=== PATIENT | female | born 1960 | race Caucasian/White ===

== ENCOUNTER 2017-04-01 14:16 | Emergency (ER) | payer MEDICARE ==
[~2017-04-01] VITALS: Ht 165.1 cm; Wt 118.2 kg
[2017-04-01 14:18] VITALS: BP 138/80
[2017-04-01] MEDS ORDERED: GEMF600T PO (14:32)
[2017-04-01] MEDS ORDERED: CLAR10CA3 PO (14:32)
[2017-04-01] MEDS ORDERED: GABA-283 PO (14:32)
[2017-04-01] MEDS ORDERED: NEUR600T PO (14:32)
[2017-04-01] MEDS ORDERED: [UNRECOGNIZED DRUG - CODE] EX (14:32)
[2017-04-01] MEDS ORDERED: METF500T13 PO (14:32)
[2017-04-01] MEDS ORDERED: QVAR1AER2 IN (14:32)
[2017-04-01] MEDS ORDERED: DITR5TAB PO (14:32)
[2017-04-01] MEDS ORDERED: AMLO10TA2 PO (14:32)
[2017-04-01] MEDS ORDERED: OLME5TAB PO (14:32)
[2017-04-01] MEDS ORDERED: RANI15TA PO (14:32)
[2017-04-01] MEDS ORDERED: LIPI80TA PO (14:32)
[2017-04-01] MEDS ORDERED: PROAAER10 INH (14:32)
[2017-04-01] MEDS ORDERED: AUGM875T28 PO (16:50)
[2017-04-01] MEDS ORDERED: AUGMENTIN 875 MG TAB PO ONE (17:00)
[2017-04-01] MEDS ORDERED: IBUPROFEN 800 MG TAB PO ONE (17:00)
== END 2017-04-01 17:22 | disposition home or self-care (01) ==
LOC: M ED 14:16
DX: J01.90 Acute sinusitis, unspecified (principal); J45.909 Unspecified asthma, uncomplicated; I10 Essential (primary) hypertension; E11.9 Type 2 diabetes mellitus without complications; E78.70 Disorder of bile acid and cholesterol metabolism, unspecified; Z79.01 Long term (current) use of anticoagulants; Z79.899 Other long term (current) drug therapy; Z88.2 Allergy status to sulfonamides

== ENCOUNTER → 2017-07-24 | Outpatient (REF) | payer MEDICARE, MEDICAID ==
[2017-07-24 15:41] LABS: BASO # 0.1 10^3/uL (0.0-0.2); BASO % 0.6 % (0.0-1.0); EOS # 0.2 10^3/uL (0.0-0.50); EOS % 2.1 % (0.0-3.0); HEMATOCRIT 40.7 % (36.0-47.0); HEMOGLOBIN 13.3 g/dl (12.0-16.0); IMMATURE GRANULOCYTE % 0.2 % (0-0); LYMPH % 22.3 % (24.0-44.0); MEAN CORPUSCULAR HEMOGLOBIN 30.2 pg (27.0-33.0); MEAN CORPUSCULAR HGB CONC 32.7 g/dl (32.0-36.5); MEAN CORPUSCULAR VOLUME 92.3 fl (80.0-96.0); MONO # 0.6 10^3/uL (0.0-0.8); NEUTROPHILS # 6.1 10^3/uL (1.8-7.7); NEUTROPHILS % 67.8 % (36.0-66.0); PLATELET COUNT, AUTOMATED 370 10^3/uL (150-450); RED BLOOD COUNT 4.41 10^6/uL (4.00-5.40); RED CELL DISTRIBUTION WIDTH 13.8 % (11.5-14.5)
[2017-07-24 16:01] LABS: ALBUMIN 4.7 GM/DL (3.2-5.2); ALBUMIN/GLOBULIN RATIO 1.62 (1.00-1.93); ALKALINE PHOSPHATASE 107 U/L (45-117); ALT/SGPT 69 U/L (12-78); ANION GAP 8 MEQ/L (8-16); AST/SGOT 74 U/L (7-37); BILIRUBIN,TOTAL 0.3 MG/DL (0.2-1.0); BLOOD UREA NITROGEN 20 MG/DL (7-18); CARBON DIOXIDE LEVEL 29 MEQ/L (21-32); CHLORIDE LEVEL 104 MEQ/L (98-107); CHOLESTEROL LEVEL 117 MG/DL (<200); CHOLESTEROL RISK RATIO 2.207 (<5); CREATININE FOR GFR 0.71 MG/DL (0.55-1.02); GLOMERULAR FILTRATION RATE > 60.0 (>51); GLUCOSE, FASTING 129 MG/DL (70-105); HDL CHOLESTEROL 53 MG/DL (>40); LDL CHOLESTEROL 32.2 MG/DL (<100); NON-HDL-C 64 MG/DL; POTASSIUM SERUM 4.9 MEQ/L (3.5-5.1); SODIUM LEVEL 141 MEQ/L (136-145); TOTAL PROTEIN 7.6 GM/DL (6.4-8.2); TRIGLYCERIDES LEVEL 159 MG/DL (<150)
[2017-07-24 16:10] LABS: ESTIMATED AVERAGE GLUCOSE 180 MG/DL (60-110); HEMOGLOBIN A1c 7.9 %
[2017-07-24 16:55] LABS: MAU/CREAT RATIO 103.7 MCG/MG (0.0-30.0)
== END ==
LOC: M SFHCPLAZ 13:08
DX: F32.9 Major depressive disorder, single episode, unspecified (principal); E11.9 Type 2 diabetes mellitus without complications; E78.5 Hyperlipidemia, unspecified; Z87.11 Personal history of peptic ulcer disease
CPT/HCPCS: 84443

== ENCOUNTER → 2017-07-31 | Outpatient (REF) | payer MEDICARE, MEDICAID ==
[2017-07-31 19:28] LABS: FERRITIN 146 NG/ML (8-252)
[2017-08-02 10:25] LABS: HEPATITIS B SURFACE ANTIGEN NEGATIVE (NEGATIVE)
[2017-08-02 10:29] LABS: HEPATITIS B SURFACE ANTIBODY NEGATIVE (POSITIVE)
[2017-08-02 10:37] LABS: HEPATITIS C VIRUS ABY INDEX < 0.0 INDEX (<0.8)
[2017-08-02 10:37] LABS: HEPATITIS B CORE ANTIBODY IGM NEGATIVE (NEGATIVE)
[2017-08-03 00:10] LABS: ALPHA 1 ANTITRYPSIN 170 mg/dL (90-200)
[2017-08-03 00:10] LABS: ANTI-MITOCHONDRIAL ANTIBODY 0.9 Units (0.0-20.0); ANTINUCLEAR ANTIBODIES DIRECT Negative (Negative)
== END ==
LOC: M SFHCPLAZ 15:06
DX: R74.0 Nonspecific elevation of levels of transaminase and lactic acid dehydrogenase [LDH] (principal); R80.9 Proteinuria, unspecified
CPT/HCPCS: 86706

== ENCOUNTER → 2017-08-05 | Outpatient (CLI) | payer MEDICARE, MEDICAID | LOC: M RAD 07:48 | DX: R19.01 Right upper quadrant abdominal swelling, mass and lump (principal) | CPT/HCPCS: 76705 ==

== ENCOUNTER 2017-08-28 11:14 | Emergency (ER) | payer OTHER, MEDICARE, MEDICAID ==
[2017-08-28] MEDS: NORCO, ANEXSIA 5/325MG TABLET (HYDROcodone/ACETAMINOPHEN) PO (12:51)
== END 2017-08-28 13:04 | disposition home or self-care (01) ==
LOC: M ED 11:14
DX: S83.91XA Sprain of unspecified site of right knee, initial encounter (principal); X50.9XXA Other and unspecified overexertion or strenuous movements or postures, initial encounter; V58.4XXA Person boarding or alighting a pick-up truck or van injured in noncollision transport accident, initial encounter; Y92.410 Unspecified street and highway as the place of occurrence of the external cause; Y92.018 Other place in single-family (private) house as the place of occurrence of the external cause; I10 Essential (primary) hypertension; J45.909 Unspecified asthma, uncomplicated; E11.9 Type 2 diabetes mellitus without complications; G62.9 Polyneuropathy, unspecified; E78.5 Hyperlipidemia, unspecified; Z79.899 Other long term (current) drug therapy; Z88.2 Allergy status to sulfonamides; Z88.8 Allergy status to other drugs, medicaments and biological substances
CPT/HCPCS: 99283

== ENCOUNTER → 2017-09-24 | Outpatient (CLI) | payer MEDICARE, MEDICAID | LOC: M RAD 14:45 | DX: J32.0 Chronic maxillary sinusitis (principal) | CPT/HCPCS: 70486 ==

== ENCOUNTER → 2017-10-16 | Outpatient (CLI) | payer MEDICARE, MEDICAID | LOC: M WHC 11:56 | DX: Z12.31 Encounter for screening mammogram for malignant neoplasm of breast (principal); Z12.4 Encounter for screening for malignant neoplasm of cervix; Z78.0 Asymptomatic menopausal state; Z80.41 Family history of malignant neoplasm of ovary; Z80.9 Family history of malignant neoplasm, unspecified | CPT/HCPCS: 77067; G0123 ==

== ENCOUNTER → 2017-10-24 | Outpatient (CLI) | payer MEDICARE, MEDICAID ==
[2017-10-24 13:13] LABS: BASO # 0.1 10^3/uL (0.0-0.2); BASO % 0.5 % (0.0-1.0); EOS # 0.3 10^3/uL (0.0-0.50); EOS % 2.7 % (0.0-3.0); HEMATOCRIT 37.5 % (36.0-47.0); HEMOGLOBIN 12.1 g/dl (12.0-15.5); IMMATURE GRANULOCYTE # 0.1 10^3/uL (0-0); IMMATURE GRANULOCYTE % 0.6 % (0-3.0); LYMPH # 1.7 10^3/uL (1.5-4.5); LYMPH % 17.2 % (24.0-44.0); MEAN CORPUSCULAR HEMOGLOBIN 30.2 pg (27.0-33.0); MEAN CORPUSCULAR HGB CONC 32.3 g/dl (32.0-36.5); MEAN CORPUSCULAR VOLUME 93.5 fl (80.0-96.0); MONO # 0.6 10^3/uL (0.0-0.8); MONO % 6.4 % (0.0-5.0); NEUTROPHILS # 7.3 10^3/uL (1.8-7.7); NEUTROPHILS % 72.6 % (36.0-66.0); PLATELET COUNT, AUTOMATED 266 10^3/uL (150-450); RED BLOOD COUNT 4.01 10^6/uL (4.00-5.40); RED CELL DISTRIBUTION WIDTH 14.7 % (11.5-14.5)
[2017-10-24 13:59] LABS: IMMUNOGLOBULIN A 31.5 MG/DL (70-400)
[2017-10-24 13:59] LABS: IMMUNOGLOBULIN G 380 MG/DL (681-1648); IMMUNOGLOBULIN M 37.5 MG/DL (40-230)
[2017-10-24 14:28] LABS: IMMUNOGLOBULIN E 6.1 IU/ML (<100)
[2017-10-25 11:20] LABS: RUBELLA IgG QUALITATIVE IMMUNE (IMMUNE)
[2017-10-29 14:14] LABS: ANTI TETANUS ANTIBODY 1.44 IU/mL (<0.10)
[2017-10-31 00:06] LABS: IMMUNOGLOBULIN D <0.12 mg/dL (<14.11); STREP PNEUMO TYPE 1 4.2 ug/mL (>1.3); STREP PNEUMO TYPE 12F 1.2 ug/mL (>1.3); STREP PNEUMO TYPE 14 11.8 ug/mL (>1.3); STREP PNEUMO TYPE 18C 0.3 ug/mL (>1.3); STREP PNEUMO TYPE 19A 0.7 ug/mL (>1.3); STREP PNEUMO TYPE 19F 3.6 ug/mL (>1.3); STREP PNEUMO TYPE 23F 0.7 ug/mL (>1.3); STREP PNEUMO TYPE 3 0.2 ug/mL (>1.3); STREP PNEUMO TYPE 4 3.5 ug/mL (>1.3); STREP PNEUMO TYPE 6B 2.2 ug/mL (>1.3); STREP PNEUMO TYPE 7F 0.4 ug/mL (>1.3); STREP PNEUMO TYPE 8 1.1 ug/mL (>1.3); STREP PNEUMO TYPE 9N 0.8 ug/mL (>1.3); STREP PNEUMO TYPE 9V 1.1 ug/mL (>1.3)
== END ==
LOC: M SMT 10:26
DX: K21.9 Gastro-esophageal reflux disease without esophagitis (principal); J45.40 Moderate persistent asthma, uncomplicated; J31.0 Chronic rhinitis; J32.4 Chronic pansinusitis; F32.9 Major depressive disorder, single episode, unspecified
CPT/HCPCS: 82785

== ENCOUNTER → 2017-10-29 | Outpatient (REF) | payer MEDICARE, MEDICAID ==
[2017-10-29 12:46] LABS: MALB URINE SIEMENS 60.2 MG/L; MAU/CREAT RATIO 41.5 MCG/MG (0.0-30.0)
[2017-10-29 13:03] LABS: ALBUMIN/GLOBULIN RATIO 1.38 (1.00-1.93); ALKALINE PHOSPHATASE 110 U/L (45-117); ALT/SGPT 50 U/L (12-78); ANION GAP 8 MEQ/L (8-16); AST/SGOT 44 U/L (7-37); BILIRUBIN,TOTAL 0.4 MG/DL (0.2-1.0); BLOOD UREA NITROGEN 13 MG/DL (7-18); CALCIUM LEVEL 9.4 MG/DL (8.5-10.1); CARBON DIOXIDE LEVEL 27 MEQ/L (21-32); CHLORIDE LEVEL 105 MEQ/L (98-107); CHOLESTEROL LEVEL 164 MG/DL (<200); CHOLESTEROL RISK RATIO 3.904 (<5); CREATININE FOR GFR 0.78 MG/DL (0.55-1.30); GLOMERULAR FILTRATION RATE > 60.0 (>51); GLUCOSE, FASTING 166 MG/DL (70-100); HDL CHOLESTEROL 42 MG/DL (>40); LDL CHOLESTEROL 52.6 MG/DL (<100); NON-HDL-C 122 MG/DL; POTASSIUM SERUM 4.3 MEQ/L (3.5-5.1); SODIUM LEVEL 140 MEQ/L (136-145); TOTAL PROTEIN 6.9 GM/DL (6.4-8.2); TRIGLYCERIDES LEVEL 347 MG/DL (<150)
[2017-10-29 14:43] LABS: ESTIMATED AVERAGE GLUCOSE 180 MG/DL (60-110); HEMOGLOBIN A1c 7.9 %
== END ==
LOC: M SFHCPLAZ 09:08
DX: E78.5 Hyperlipidemia, unspecified (principal); R74.0 Nonspecific elevation of levels of transaminase and lactic acid dehydrogenase [LDH]; E11.9 Type 2 diabetes mellitus without complications; R80.9 Proteinuria, unspecified
CPT/HCPCS: 80053

== ENCOUNTER 2017-12-06 15:05 | Emergency (ER) | payer MEDICARE, MEDICAID ==
[2017-12-06] MEDS: VANCOMYCIN HCL 1,000 MG, VIAL MATE ADAPTER 1 EACH in D5W 250 ML IV ×2 (15:56)
[2017-12-06 16:07] LABS: BASO % 0.4 % (0.0-1.0); EOS # 0.3 10^3/uL (0.0-0.50); EOS % 3.9 % (0.0-3.0); HEMATOCRIT 38.5 % (36.0-47.0); HEMOGLOBIN 12.3 g/dl (12.0-15.5); IMMATURE GRANULOCYTE % 0.3 % (0-3.0); LYMPH # 1.2 10^3/uL (1.5-4.5); LYMPH % 18.4 % (24.0-44.0); MEAN CORPUSCULAR HEMOGLOBIN 29.4 pg (27.0-33.0); MEAN CORPUSCULAR HGB CONC 31.9 g/dl (32.0-36.5); MEAN CORPUSCULAR VOLUME 92.1 fl (80.0-96.0); MONO # 0.6 10^3/uL (0.0-0.8); MONO % 9.4 % (0.0-5.0); NEUTROPHILS # 4.5 10^3/uL (1.8-7.7); NEUTROPHILS % 67.6 % (36.0-66.0); PLATELET COUNT, AUTOMATED 273 10^3/uL (150-450); RED BLOOD COUNT 4.18 10^6/uL (4.00-5.40); RED CELL DISTRIBUTION WIDTH 15.3 % (11.5-14.5); WHITE BLOOD COUNT 6.7 10^3/uL (4.0-10.0)
[2017-12-06 16:12] LABS: ANION GAP 5 MEQ/L (8-16); BLOOD UREA NITROGEN 12 MG/DL (7-18); C REACTIVE PROTEIN QUANTITATIV 2.45 MG/DL (0.00-0.30); CALCIUM LEVEL 9.3 MG/DL (8.5-10.1); CARBON DIOXIDE LEVEL 28 MEQ/L (21-32); CHLORIDE LEVEL 105 MEQ/L (98-107); CREATININE FOR GFR 0.95 MG/DL (0.55-1.30); GLOMERULAR FILTRATION RATE > 60.0 (>51); GLUCOSE, FASTING 184 MG/DL (70-100); POTASSIUM SERUM 4.6 MEQ/L (3.5-5.1); SODIUM LEVEL 138 MEQ/L (136-145)
[2017-12-06 16:16] LABS: LACTIC ACID SEPSIS PROTOCOL 1.9 MMOL/L (0.4-2.0)
[2017-12-06 16:38] LABS: ERYTHROCYTE SEDIMENTATION RATE 32 mm/hr (0-30)
== END 2017-12-06 17:24 | disposition home or self-care (01) ==
LOC: M ED 15:05
DX: L03.031 Cellulitis of right toe (principal); J45.909 Unspecified asthma, uncomplicated; I10 Essential (primary) hypertension; E11.9 Type 2 diabetes mellitus without complications; Z79.2 Long term (current) use of antibiotics; Z79.84 Long term (current) use of oral hypoglycemic drugs; Z79.51 Long term (current) use of inhaled steroids; Z79.899 Other long term (current) drug therapy; Z98.890 Other specified postprocedural states; Z88.1 Allergy status to other antibiotic agents; Z88.2 Allergy status to sulfonamides
CPT/HCPCS: J3370

== ENCOUNTER 2017-12-24 12:37 | Emergency (ER) | payer MEDICARE, MEDICAID | END 2017-12-24 14:58 | disposition home or self-care (01) | LOC: M ED 12:37 | DX: J45.909 Unspecified asthma, uncomplicated (principal); J20.9 Acute bronchitis, unspecified; Z88.1 Allergy status to other antibiotic agents; Z88.2 Allergy status to sulfonamides; Z79.899 Other long term (current) drug therapy; F33.9 Major depressive disorder, recurrent, unspecified | CPT/HCPCS: 71046 ==

== ENCOUNTER 2018-01-07 22:56 | Emergency (ER) | payer MEDICARE, MEDICAID ==
[2018-01-08] MEDS: LIDOCAINE 2% W/EPIN INJ 20ML **PRES FREE INJ
[2018-01-08] MEDS: PERCOCET 5MG/325MG TAB PO (00:08)
[2018-01-08] MEDS: AUGMENTIN 875 MG TAB PO (00:08)
[2018-01-08] MEDS: ADACEL/BOOSTRIX VACCINE (DIPHTH/PERTUSS/ACELL/TETANUS)0.5ML SYR (90715) IM (00:10)
[2018-01-08] MEDS: OXYCODONE/APAP 5MG/325MG(BULK FOR ED) 1 TABLET PO (00:35)
== END 2018-01-08 00:38 | disposition home or self-care (01) ==
LOC: M ED 01-08 00:38
DX: S61.402A Unspecified open wound of left hand, initial encounter (principal); S61.502A Unspecified open wound of left wrist, initial encounter; W54.0XXA Bitten by dog, initial encounter; Y92.099 Unspecified place in other non-institutional residence as the place of occurrence of the external cause; Y93.89 Activity, other specified; Y99.9 Unspecified external cause status; I10 Essential (primary) hypertension; Z79.84 Long term (current) use of oral hypoglycemic drugs; Z79.891 Long term (current) use of opiate analgesic; Z79.899 Other long term (current) drug therapy; Z88.1 Allergy status to other antibiotic agents
CPT/HCPCS: 90715

== ENCOUNTER → 2018-01-14 | Outpatient (CLI) | payer MEDICARE, MEDICAID | LOC: M LAB 17:42 | DX: D80.1 Nonfamilial hypogammaglobulinemia (principal); J18.9 Pneumonia, unspecified organism | CPT/HCPCS: 86609 ==

== ENCOUNTER → 2018-01-27 | Outpatient (REF) | payer MEDICARE, MEDICAID ==
[2018-01-27 11:38] LABS: ANION GAP 8 MEQ/L (8-16); BLOOD UREA NITROGEN 17 MG/DL (7-18); CARBON DIOXIDE LEVEL 28 MEQ/L (21-32); CHLORIDE LEVEL 106 MEQ/L (98-107); CREATININE FOR GFR 0.81 MG/DL (0.55-1.30); GLOMERULAR FILTRATION RATE > 60.0 (>51); GLUCOSE, FASTING 169 MG/DL (70-100); POTASSIUM SERUM 4.5 MEQ/L (3.5-5.1); SODIUM LEVEL 142 MEQ/L (136-145)
[2018-01-27 14:37] LABS: ESTIMATED AVERAGE GLUCOSE 194 MG/DL (60-110); HEMOGLOBIN A1c 8.4 %
== END ==
LOC: M SFHCPLAZ 08:46
DX: E11.9 Type 2 diabetes mellitus without complications (principal)
CPT/HCPCS: 83036

== ENCOUNTER → 2018-03-19 | Outpatient (CLI) | payer MEDICARE, MEDICAID | LOC: M RAD 14:57 | DX: M25.512 Pain in left shoulder (principal) | CPT/HCPCS: 73030 ==

== ENCOUNTER → 2018-03-26 | Outpatient (CLI) | payer MEDICARE, MEDICAID | LOC: M RAD 09:04 | DX: M25.512 Pain in left shoulder (principal); M25.412 Effusion, left shoulder; S46.812A Strain of other muscles, fascia and tendons at shoulder and upper arm level, left arm, initial encounter; X58.XXXA Exposure to other specified factors, initial encounter; Y92.9 Unspecified place or not applicable; J31.0 Chronic rhinitis | CPT/HCPCS: 73221 ==

== ENCOUNTER → 2018-03-26 | Outpatient (CLI) | payer MEDICARE, MEDICAID | LOC: M RAD 08:59 | DX: J31.0 Chronic rhinitis (principal) ==

== ENCOUNTER → 2018-04-05 | Outpatient (CLI) | payer MEDICARE, MEDICAID | LOC: M SLEEP 19:49 | DX: G47.30 Sleep apnea, unspecified (principal) | CPT/HCPCS: 95810 ==

== ENCOUNTER → 2018-04-11 | Outpatient (CLI) | payer MEDICARE, MEDICAID ==
[2018-04-11 13:55] LABS: TOTAL PROTEIN 7.2 GM/DL (6.4-8.2)
[2018-04-13 00:06] LABS: FREE KAPPA LIGHT CHAINS SERUM 1233.1 mg/L (3.3-19.4); FREE LAMBDA LIGHT CHAINS SERUM 6.3 mg/L (5.7-26.3); KAPPA/LAMBDA RATIO SERUM 195.73 (0.26-1.65)
[2018-04-15 13:49] LABS: ALBUMIN % 59.2 % (55.8-66.1); ALPHA-1-GLOBULIN % 5.2 % (2.9-4.9); BETA-1-GLOBULINS % 6.7 % (4.7-7.2); BETA-2-GLOBULINS % 4.7 % (3.2-6.5); GAMMA GLOBULIN % 11.2 % (11.1-18.8)
[2018-04-15 13:50] LABS: ALBUMIN 4.26 GM/DL (3.29-5.55); ALPHA-1-GLOBULINS 0.37 GM/DL (0.17-0.41); ALPHA-2-GLOBULINS 0.94 GM/DL (0.42-0.99); BETA-1-GLOBULINS 0.48 GM/DL (0.28-0.60); BETA-2-GLOBULINS 0.34 GM/DL (0.19-0.55); GAMMA GLOBULINS 0.81 GM/DL (0.65-1.58)
== END ==
LOC: M LAB 12:39
DX: M89.9 Disorder of bone, unspecified (principal)
CPT/HCPCS: 84165

== ENCOUNTER → 2018-04-11 | Outpatient (CLI) | payer MEDICARE, MEDICAID | LOC: M RAD 16:42 | DX: M50.20 Other cervical disc displacement, unspecified cervical region (principal); M51.34 Other intervertebral disc degeneration, thoracic region; M51.36 Other intervertebral disc degeneration, lumbar region | CPT/HCPCS: 77075 ==

== ENCOUNTER → 2018-04-25 | Outpatient (CLI) | payer MEDICARE, MEDICAID ==
[2018-04-25 12:14] LABS: ESTIMATED AVERAGE GLUCOSE 143 MG/DL (60-110); HEMOGLOBIN A1c 6.6 %
== END ==
LOC: M LAB 11:08
DX: F32.9 Major depressive disorder, single episode, unspecified (principal)

== ENCOUNTER → 2018-04-25 | Outpatient (CLI) | payer MEDICARE, MEDICAID ==
[2018-04-25 11:58] LABS: BASO # 0.1 10^3/uL (0.0-0.2); BASO % 0.4 % (0.0-1.0); EOS # 0.2 10^3/uL (0.0-0.50); EOS % 1.4 % (0.0-3.0); HEMATOCRIT 35.5 % (36.0-47.0); HEMOGLOBIN 11.4 g/dl (12.0-15.5); IMMATURE GRANULOCYTE % 0.3 % (0-3.0); LYMPH # 2.6 10^3/uL (1.5-4.5); LYMPH % 21.8 % (24.0-44.0); MEAN CORPUSCULAR HEMOGLOBIN 28.9 pg (27.0-33.0); MEAN CORPUSCULAR HGB CONC 32.1 g/dl (32.0-36.5); MEAN CORPUSCULAR VOLUME 89.9 fl (80.0-96.0); MONO # 0.7 10^3/uL (0.0-0.8); MONO % 5.5 % (0.0-5.0); NEUTROPHILS # 8.4 10^3/uL (1.8-7.7); NEUTROPHILS % 70.6 % (36.0-66.0); PLATELET COUNT, AUTOMATED 306 10^3/uL (150-450); RED BLOOD COUNT 3.95 10^6/uL (4.00-5.40); RED CELL DISTRIBUTION WIDTH 17.2 % (11.5-14.5); WHITE BLOOD COUNT 11.9 10^3/uL (4.0-10.0)
[2018-04-25 12:30] LABS: ALBUMIN 3.9 GM/DL (3.2-5.2); ALBUMIN/GLOBULIN RATIO 1.39 (1.00-1.93); ALKALINE PHOSPHATASE 102 U/L (45-117); ALT/SGPT 31 U/L (12-78); ANION GAP 11 MEQ/L (8-16); AST/SGOT 15 U/L (7-37); BILIRUBIN,TOTAL 0.3 MG/DL (0.2-1.0); BLOOD UREA NITROGEN 24 MG/DL (7-18); CALCIUM LEVEL 8.9 MG/DL (8.5-10.1); CARBON DIOXIDE LEVEL 25 MEQ/L (21-32); CHLORIDE LEVEL 106 MEQ/L (98-107); CREATININE FOR GFR 1.08 MG/DL (0.55-1.30); GLOMERULAR FILTRATION RATE 56.1 (>51); GLUCOSE, FASTING 99 MG/DL (70-100); POTASSIUM SERUM 4.5 MEQ/L (3.5-5.1); SODIUM LEVEL 142 MEQ/L (136-145); TOTAL PROTEIN 6.7 GM/DL (6.4-8.2)
[2018-04-27 01:39] LABS: FREE KAPPA LIGHT CHAINS SERUM 1297.4 mg/L (3.3-19.4); FREE LAMBDA LIGHT CHAINS SERUM 6.8 mg/L (5.7-26.3); KAPPA/LAMBDA RATIO SERUM 190.79 (0.26-1.65)
== END ==
LOC: M LAB 11:10
DX: D83.9 Common variable immunodeficiency, unspecified (principal); F32.9 Major depressive disorder, single episode, unspecified; E11.9 Type 2 diabetes mellitus without complications
CPT/HCPCS: 84165

== ENCOUNTER 2018-04-27 19:09 | Emergency (ER) | payer MEDICARE, MEDICAID ==
[2018-04-27] MEDS: AUGMENTIN 875 MG TAB PO (20:27)
[2018-04-27] MEDS: LIDOCAINE 1% MDV 20ML VIAL SC (20:28)
[2018-04-27] MEDS: NORCO, ANEXSIA 5/325MG TABLET (HYDROcodone/ACETAMINOPHEN) PO (20:45)
== END 2018-04-27 21:37 | disposition home or self-care (01) ==
LOC: M ED 19:09
DX: S61.432A Puncture wound without foreign body of left hand, initial encounter (principal); W54.0XXA Bitten by dog, initial encounter; Y92.018 Other place in single-family (private) house as the place of occurrence of the external cause; I10 Essential (primary) hypertension; J45.909 Unspecified asthma, uncomplicated; E11.9 Type 2 diabetes mellitus without complications; C90.00 Multiple myeloma not having achieved remission; K21.9 Gastro-esophageal reflux disease without esophagitis; E78.00 Pure hypercholesterolemia, unspecified; G62.9 Polyneuropathy, unspecified; Z79.899 Other long term (current) drug therapy; Z79.84 Long term (current) use of oral hypoglycemic drugs; Z88.2 Allergy status to sulfonamides; Z88.8 Allergy status to other drugs, medicaments and biological substances; Z87.891 Personal history of nicotine dependence
CPT/HCPCS: 73120

== ENCOUNTER → 2018-05-13 | Outpatient (REF) | payer MEDICARE, MEDICAID ==
[2018-05-13 16:27] LABS: HEMATOCRIT 33.8 % (36.0-47.0); HEMOGLOBIN 10.9 g/dl (12.0-15.5); MEAN CORPUSCULAR HEMOGLOBIN 28.8 pg (27.0-33.0); MEAN CORPUSCULAR HGB CONC 32.2 g/dl (32.0-36.5); MEAN CORPUSCULAR VOLUME 89.2 fl (80.0-96.0); PLATELET COUNT, AUTOMATED 287 10^3/uL (150-450); RED BLOOD COUNT 3.79 10^6/uL (4.00-5.40); RED CELL DISTRIBUTION WIDTH 17.7 % (11.5-14.5); WHITE BLOOD COUNT 11.4 10^3/uL (4.0-10.0)
[2018-05-13 16:44] LABS: C REACTIVE PROTEIN QUANTITATIV 1.01 MG/DL (0.00-0.30)
[2018-05-13 17:27] LABS: ERYTHROCYTE SEDIMENTATION RATE 35 mm/hr (0-30)
== END ==
LOC: M LABDRAW1 15:52
DX: S61.452D Open bite of left hand, subsequent encounter (principal); W18.30XD Fall on same level, unspecified, subsequent encounter; Y92.009 Unspecified place in unspecified non-institutional (private) residence as the place of occurrence of the external cause
CPT/HCPCS: 86140

== ENCOUNTER → 2018-06-02 | Outpatient (CLI) | payer MEDICARE, MEDICAID ==
[2018-06-02 17:46] LABS: HEMATOCRIT 31.6 % (36.0-47.0); HEMOGLOBIN 10.3 g/dl (12.0-15.5); MEAN CORPUSCULAR HEMOGLOBIN 29.6 pg (27.0-33.0); MEAN CORPUSCULAR HGB CONC 32.6 g/dl (32.0-36.5); MEAN CORPUSCULAR VOLUME 90.8 fl (80.0-96.0); PLATELET COUNT, AUTOMATED 231 10^3/uL (150-450); RED BLOOD COUNT 3.48 10^6/uL (4.00-5.40); RED CELL DISTRIBUTION WIDTH 17.9 % (11.5-14.5); WHITE BLOOD COUNT 8.5 10^3/uL (4.0-10.0)
[2018-06-02 17:52] LABS: C REACTIVE PROTEIN QUANTITATIV 0.91 MG/DL (0.00-0.30)
[2018-06-02 19:29] LABS: ERYTHROCYTE SEDIMENTATION RATE 15 mm/hr (0-30)
== END ==
LOC: M LAB 16:38
DX: S61.452D Open bite of left hand, subsequent encounter (principal); F33.0 Major depressive disorder, recurrent, mild
CPT/HCPCS: 86140

== ENCOUNTER → 2018-06-02 | Outpatient (REF) | payer MEDICARE, MEDICAID | LOC: M LAB REF 17:40 | DX: S61.452D Open bite of left hand, subsequent encounter (principal) | CPT/HCPCS: 87205 ==

== ENCOUNTER → 2018-06-09 | Outpatient (REF) | payer MEDICARE, MEDICAID | LOC: M LAB REF 06-10 09:27 | DX: S61.402D Unspecified open wound of left hand, subsequent encounter (principal) | CPT/HCPCS: 87205 ==

== ENCOUNTER → 2018-06-26 | Outpatient (REF) | payer MEDICARE, MEDICAID ==
[~2018-06-26] MED LIST: ADV250INH INH; ADV500INH INH; AMLO10TA5 PO; ASPI1TAB PO; AUGM875T28 PO; AZEL0.055; BACT800T5 PO; BENZ200C70 PO; CAPS0.1C2 EX; CLAR10CA3 PO; CLEO300C2 PO; DEXA4TA; DITR5TAB PO; DOXY100C PO; FLON1SPR; FLUC150T; GABA-845 PO; GEMF600T5 PO; HIZE20IN SC; LEVOTAB10 PO; LIDO5DIS41 TOP; LIPI80TA PO; METF500T13 PO; MONT10TA2 PO; MUCI600T37 PO; MULT1TAB10 PO; NAPR-885 PO; NEUR600T PO; OLME5TAB PO; PANT20TA2 PO; PERC5TAB12 PO; PRED20TA; PROAAER10 INH; QVAR80AE10 IN; RANI15TA PO; REVL2.5C PO; TRAM1CAP15 PO; TRAM50TA2 PO; VALT500T PO; VELC3.5I SUBQ; VICO5TAB16 PO; VICT18IN SQ; XGEVINJ SC; XYZA5TAB2 PO; ZOLO100T PO; [UNRECOGNIZED DRUG - CODE] EX
[2018-06-26 14:18] LABS: BASO # 0.1 10^3/uL (0.0-0.2); BASO % 0.7 % (0.0-1.0); EOS # 0.2 10^3/uL (0.0-0.50); EOS % 2.9 % (0.0-3.0); HEMATOCRIT 34.3 % (36.0-47.0); HEMOGLOBIN 10.6 g/dl (12.0-15.5); LYMPH # 1.6 10^3/uL (1.5-4.5); LYMPH % 20.9 % (24.0-44.0); MEAN CORPUSCULAR HEMOGLOBIN 29.4 pg (27.0-33.0); MEAN CORPUSCULAR HGB CONC 30.9 g/dl (32.0-36.5); MONO # 0.7 10^3/uL (0.0-0.8); MONO % 8.7 % (0.0-5.0); NEUTROPHILS # 5.1 10^3/uL (1.8-7.7); NEUTROPHILS % 66.4 % (36.0-66.0); PLATELET COUNT, AUTOMATED 271 10^3/uL (150-450); RED BLOOD COUNT 3.61 10^6/uL (4.00-5.40); WHITE BLOOD COUNT 7.7 10^3/uL (4.0-10.0)
[2018-06-26 16:22] LABS: ERYTHROCYTE SEDIMENTATION RATE 46 mm/hr (0-30)
== END ==
LOC: M LABDRAW1 13:49
PROVIDERS: ATTEND Physician Assistant Medical
DX: S61.452D Open bite of left hand, subsequent encounter (principal)
CPT/HCPCS: 36415; 85025; 85652; 86140; G0463

== ENCOUNTER → 2018-08-13 | Outpatient (CLI) | payer MEDICARE, MEDICAID ==
[2018-08-13 14:24] LABS: HEMOGLOBIN A1c 8.6 %
== END ==
LOC: M LAB 13:04
PROVIDERS: ATTEND Physician Assistant
DX: E11.9 Type 2 diabetes mellitus without complications (principal)

== ENCOUNTER → 2018-08-18 | Outpatient (REF) | payer MEDICARE, MEDICAID | LOC: M SFHCPLAZ 11:47 | PROVIDERS: ATTEND Internal Medicine Infectious Disease | DX: J32.9 Chronic sinusitis, unspecified (principal) | CPT/HCPCS: 87070; 87077; 87102; 87186; 88108; 88313; G0463 ==

== ENCOUNTER → 2018-08-26 | Outpatient (CLI) | payer MEDICARE, MEDICAID ==
--- NOTE | 2018-08-26 12:01 | REP ---
MAXILLOFACIAL CT WITHOUT CONTRAST: HISTORY: Recurrent sinusitis. COMPARISON: 09/24/2017. The patient is status post repair of right facial bone fractures. Metal hardware is present. Minimal mucosal thickening is present in the right maxillary sinus. The remaining sinuses are clear. The osteomeatal units are patent. The middle and inferior nasal turbinates are partially paradoxical. There is minimal deviation of the nasal septum to the right. The cribriform plate, medial hunt of the orbits, and optic canals are intact. The carotid canals form as segment of the posterolateral hunt of the sphenoid sinus. IMPRESSION: Sinus mucosal thickening as described above. Electronically Signed by Oskar Boswell MD 08/26/2018 12:06 P
== END ==
LOC: M RAD 11:05
PROVIDERS: ATTEND Internal Medicine Infectious Disease
DX: J32.9 Chronic sinusitis, unspecified (principal)

== ENCOUNTER → 2018-08-27 | Outpatient (REF) | payer MEDICARE, MEDICAID ==
[2018-09-02 00:06] LABS: ANCA-ATYPICAL <1:20 titer (Neg:<1:20); CYTOPLASMIC NEUTROP AB ANCA-C <1:20 titer (Neg:<1:20); D001-IgE D pteronyssinus <0.10 kU/L (Class 0); E001-IgE Cat Epith/Dander < 0.10 kU/L (Class 0); E005-IgE Dog Dander < 0.10 kU/L (Class 0); G002-IgE Bermuda Grass < 0.10 kU/L (Class 0); G008-IgE Kentucky Bluegrass < 0.10 kU/L (Class 0); M001-IgE Penicillium chrysogen < 0.10 kU/L (Class 0); M002 IgE Cladosporium herbaru < 0.10 kU/L (Class 0); M003 IgE Aspergillus fumigatu < 0.10 kU/L (Class 0); M006-IgE Alternaria alternata < 0.10 kU/L (Class 0); PERINUCLEAR AB ANCA-P <1:20 titer (Neg:<1:20); T001-IgE Maple/Box Elder < 0.10 kU/L (Class 0); T003-IgE Common Silver Birch < 0.10 kU/L (Class 0); T006-IgE Cedar, Mountain < 0.10 kU/L (Class 0); T007-IgE Oak, White < 0.10 kU/L (Class 0); T008-IgE Elm, American < 0.10 kU/L (Class 0); T015-IgE Ash, White < 0.10 kU/L (Class 0); T041-IgE Hickory, White < 0.10 kU/L (Class 0); T070-IgE White Mulberry < 0.10 kU/L (Class 0); W001-IgE Ragweed, Short < 0.10 kU/L (Class 0); W009-IgE Plantain, English < 0.10 kU/L (Class 0); W014-IgE Pigweed, Rough < 0.10 kU/L (Class 0); W018-IgE Sheep Sorrel < 0.10 kU/L (Class 0)
== END ==
LOC: M LAB REF 17:05
PROVIDERS: ATTEND Internal Medicine Pulmonary Disease
DX: J45.20 Mild intermittent asthma, uncomplicated (principal)

== ENCOUNTER → 2018-09-22 | Outpatient (CLI) | payer MEDICARE, MEDICAID ==
[~2018-09-22] MED LIST changes: -ASPI1TAB PO; +ASPI81TA26 PO; -VICO5TAB16 PO; +VICO5TAB17 PO
--- NOTE | 2018-09-23 07:58 | ECHO ---
DATE OF PROCEDURE: 09/22/2018 REFERRING PHYSICIAN: Yessi Marti. INDICATION: Chemotherapy. HEIGHT: 165 cm. WEIGHT: 123 kg. DIMENSIONS: IVS: 1.2 LV: 4.9 LVPW: 1.2 LA: 4.4 Aorta: 3.2 IVC: 2.5 Left atrial volume index 43 mL/m2. Mitral E wave velocity: 116 A wave: 92 E prime septal: 9.0 E prime lateral: 7.9 FINDINGS: The study is of mildly limited technical quality corresponding to patient body habitus. Left ventricle is normal size. There is mild left ventricular hypertrophy. I do not appreciate any wall motion abnormalities and estimate overall LVEF 60-65%. Right ventricle is of normal size and systolic function. Left atrium is severely enlarged. Right atrium appears to be normal size. All four cardiac valves were reasonably well seen and appear normal. No pericardial effusion is noted. Inferior vena cava is dilated but collapsed with respiration indicative of mildly elevated central venous pressure. Aortic root, aortic arch and visualized segment of abdominal aorta all appear normal. Doppler interrogation of aortic valve reveals no stenosis or insufficiency. There is mild mitral, tricuspid and pulmonic insufficiency. Mitral inflow pattern and tissue Doppler imaging of mitral annulus reveal grade 2 diastolic dysfunction. CONCLUSIONS: 1. Study is of fair technical quality. 2. Normal LV size with mild LVH and preserved LV systolic function. Likely grade 2 diastolic dysfunction. 3. No hemodynamically significant valvular disease. 4. At least mildly elevated central venous pressure and likely moderate pulmonary hypertension. COMMENT: SBE prophylaxis is not recommended. Study is most consistent with hypertensive heart disease. MTDD
== END ==
LOC: M CARPUL 08:28
PROVIDERS: ATTEND Internal Medicine
DX: Z52.011 Autologous donor, stem cells (principal); C90.00 Multiple myeloma not having achieved remission; I10 Essential (primary) hypertension; Z92.21 Personal history of antineoplastic chemotherapy
CPT/HCPCS: 93306; G0463

== ENCOUNTER 2018-11-30 03:41 | Emergency (ER) | payer MEDICARE, MEDICAID ==
[~2018-11-30] VITALS: Ht 165.1 cm; Wt 113.6 kg
[2018-11-30] MEDS ORDERED: MORPHINE 10 MG/ML 1ML VIAL (J2270) IM ONE (05:45)
[2018-11-30] MEDS ORDERED: OXYC1TAB23 PO (06:48)
[2018-11-30 06:55] VITALS: BP 127/62
[2018-11-30] MEDS ORDERED: OXYCODONE/APAP 5MG/325MG(BULK FOR ED) 1 TABLET PO ONE (07:00)
--- NOTE | 2018-11-30 08:18 | REP ---
Clinical: Trauma. Fall. Technique: AP and lateral views of the right humerus. Findings: Generalized age-related changes at the shoulder and elbow. No acute fracture dislocation. No subcutaneous emphysema or radiodense foreign body. Impression: No acute fracture or dislocation. Electronically Signed by Koko Romano MD 11/30/2018 08:09 A
== END 2018-11-30 07:03 | disposition home or self-care (01) ==
LOC: M ED 03:41
DX: S40.021A Contusion of right upper arm, initial encounter (principal); W19.XXXA Unspecified fall, initial encounter; Y92.099 Unspecified place in other non-institutional residence as the place of occurrence of the external cause; Y93.9 Activity, unspecified; Y99.9 Unspecified external cause status; Z79.899 Other long term (current) drug therapy; Z88.8 Allergy status to other drugs, medicaments and biological substances
CPT/HCPCS: 73060; 96372; 99284; J2270

== ENCOUNTER 2019-06-05 22:16 | Emergency (ER) | payer MEDICARE, MEDICAID ==
[~2019-06-05] VITALS: Ht 165.1 cm; Wt 113.6 kg
[~2019-06-05 22:16] MED LIST changes: +OXYC1TAB23 PO
[2019-06-05] MEDS ORDERED: MONT10TA2 (22:37)
[2019-06-05] MEDS ORDERED: ADV250INH (22:37)
[2019-06-05] MEDS ORDERED: LOPE1CAP5 (22:37)
[2019-06-05] MEDS ORDERED: METO50TA7 (22:37)
[2019-06-05] MEDS ORDERED: ATOR80TA59 (22:37)
[2019-06-05] MEDS ORDERED: ENOX40IN3 (22:37)
[2019-06-05] MEDS ORDERED: NAPR-885 (22:37)
[2019-06-05] MEDS ORDERED: AUGM500T34 PO (22:53)
[2019-06-05] MEDS ORDERED: AMPICILLIN SOD/SULBACTAM SOD 3 GM in D5W MINI-BAG PLUS 100 ML IV ONE (23:00)
[2019-06-05 23:03] LABS: BASO # 0.1 10^3/uL (0.0-0.2); BASO % 1.4 % (0.0-1.0); EOS # 0.3 10^3/uL (0.0-0.5); HEMATOCRIT 38.8 % (36.0-47.0); LYMPH # 1.1 10^3/uL (1.5-5.0); MEAN CORPUSCULAR HEMOGLOBIN 28.4 pg (27.0-33.0); MEAN CORPUSCULAR HGB CONC 30.9 g/dl (32.0-36.5); MEAN CORPUSCULAR VOLUME 91.7 fl (80.0-96.0); MONO # 0.6 10^3/uL (0.0-0.8); NEUTROPHILS # 4.4 10^3/uL (1.5-8.5); NEUTROPHILS % 67.1 % (36.0-66.0); PLATELET COUNT, AUTOMATED 223 10^3/uL (150-450); RED BLOOD COUNT 4.23 10^6/uL (4.00-5.40); WHITE BLOOD COUNT 6.6 10^3/uL (4.0-10.0)
[2019-06-05 23:54] VITALS: BP 148/62
== END 2019-06-05 23:55 | disposition home or self-care (01) ==
LOC: M ED 22:16
DX: S61.419A Laceration without foreign body of unspecified hand, initial encounter (principal); X58.XXXA Exposure to other specified factors, initial encounter; Y92.099 Unspecified place in other non-institutional residence as the place of occurrence of the external cause; Y93.89 Activity, other specified; Y99.9 Unspecified external cause status; E11.9 Type 2 diabetes mellitus without complications; I10 Essential (primary) hypertension; F32.9 Major depressive disorder, single episode, unspecified; C90.00 Multiple myeloma not having achieved remission; D83.9 Common variable immunodeficiency, unspecified; Z94.84 Stem cells transplant status

== ENCOUNTER → 2019-06-16 | Outpatient (REF) | payer MEDICARE, MEDICAID ==
[~2019-06-16] MED LIST changes: +ADV250INH; +ATOR80TA59; +AUGM500T34 PO; +ENOX40IN3; +LOPE1CAP5; +METO50TA7; +MONT10TA2; +NAPR-885
== END ==
LOC: M PLALAB 10:20
PROVIDERS: ATTEND Nurse Practitioner Women's Health
DX: Z12.4 Encounter for screening for malignant neoplasm of cervix (principal); Z53.8 Procedure and treatment not carried out for other reasons

== ENCOUNTER → 2019-06-16 | Outpatient (CLI) | payer MEDICARE, MEDICAID ==
--- NOTE | 2019-06-16 12:06 | REPMRS ---
Patient History The patient states she had a clinical breast exam in . Patient is postmenopausal, had previous chemotherapy at age 58, and has history of other cancer at age 57. Family history of endometrial cancer and ovarian cancer in maternal grandmother, prostate cancer in maternal grandfather. No Hormone Replacement Therapy 3D TOMOSYNTHESIS WAS PERFORMED. The [facility] lifetime risk for breast cancer is 9.0%. Digital Woman Screen Mammo: June 16, 2019 - Exam #: [id number] Bilateral CC and MLO view(s) were taken. Technologist: Darlene Greenberg, Technologist Prior study comparison: October 16, 2017, digital woman screen mammo performed at [facility]. October 18, 2014, bilateral digital mammo screening bilat, performed at [facility]. FINDINGS: There are scattered fibroglandular densities. There has been no change in the appearance of the mammogram from the prior studies. There is a mild amount of residual fibroglandular tissue which is fairly symmetric. There is no interval development of dominant mass, architectural distortion, or clustered microcalcification suggestive of malignancy. Assessment: BI-RADS/ACR category 1 mammogram. Negative Mammogram. Recommendation Routine screening mammogram in 1 year (for women over age 40). This mammogram was interpreted with the aid of an FDA-approved computer-aided dectection system. Electronically Signed By: Christofer Garza MD 06/16/19 [id number]
== END ==
LOC: M WHC 09:43
PROVIDERS: ATTEND Nurse Practitioner Women's Health
DX: Z12.31 Encounter for screening mammogram for malignant neoplasm of breast (principal); Z78.0 Asymptomatic menopausal state; Z92.21 Personal history of antineoplastic chemotherapy; Z85.89 Personal history of malignant neoplasm of other organs and systems

== ENCOUNTER → 2019-06-16 | Outpatient (CLI) | payer MEDICARE, MEDICAID | LOC: M PLALAB 11:03 | PROVIDERS: ATTEND Nurse Practitioner Women's Health | DX: Z12.4 Encounter for screening for malignant neoplasm of cervix (principal); N88.0 Leukoplakia of cervix uteri | CPT/HCPCS: 36415; 87624; G0123 ==

== ENCOUNTER → 2019-06-17 | Outpatient (CLI) | payer MEDICARE, MEDICAID ==
--- NOTE | 2019-06-17 14:54 | REP ---
PELVIC ULTRASOUND: Real-time sonographic evaluation of the pelvis performed utilizing transabdominal and endovaginal technique. Bladder measures 7.4 x 4.1 x 7.9 cm. Uterus measures 6.8 x 4.0 x 5.2 cm and is diffusely heterogeneous in echotexture. No focal myometrial abnormality is seen. Endometrium is upper limits of normal in thickness at 4.0 mm. There is no endometrial fluid collection. Right ovary could not be visualized. Left ovary is normal in size 1.5 x 1.1 x 0.8 cm. No adnexal mass or free fluid is seen. There is no evidence of left ovarian torsion with duplex Doppler evaluation. IMPRESSION: Heterogeneous myometrium. Endometrial thickness upper limits of normal at 4.0 mm. No endometrial fluid collection. No evidence of adnexal mass or free fluid. Unreviewed
== END ==
LOC: M RAD 13:13
PROVIDERS: ATTEND Nurse Practitioner Women's Health
DX: N95.0 Postmenopausal bleeding (principal)

== ENCOUNTER → 2019-07-06 | Outpatient (CLI) | payer MEDICARE, MEDICAID ==
--- NOTE | 2019-07-06 17:26 | REP ---
Clinical: Fever. Technique: PA and lateral. Comparison: 12/24/2017. Findings: Mediastinum and cardiac silhouette are normal. Very subtle bibasilar opacities suggest bronchitis and possible early pneumonia. Correlation with auscultation may be warranted. No discrete focal consolidation. No effusion. No pneumothorax. Skeletal structures intact. Impression: Cannot exclude very subtle patchy bibasilar opacities suggesting bronchitis and possible early pneumonia. Correlation with auscultation recommended. Electronically Signed by Koko Romano MD 07/06/2019 05:16 P
[2019-07-06 18:17] LABS: BASO % 0.7 % (0.0-1.0); EOS # 0.2 10^3/uL (0.0-0.5); EOS % 3.8 % (0.0-3.0); HEMATOCRIT 37.1 % (36.0-47.0); HEMOGLOBIN 11.9 g/dl (12.0-15.5); LYMPH # 1.1 10^3/uL (1.5-5.0); LYMPH % 25.8 % (24.0-44.0); MEAN CORPUSCULAR HEMOGLOBIN 28.3 pg (27.0-33.0); MEAN CORPUSCULAR HGB CONC 32.1 g/dl (32.0-36.5); MEAN CORPUSCULAR VOLUME 88.1 fl (80.0-96.0); MONO # 0.3 10^3/uL (0.0-0.8); MONO % 7.7 % (0.0-5.0); NEUTROPHILS # 2.6 10^3/uL (1.5-8.5); NEUTROPHILS % 61.5 % (36.0-66.0); PLATELET COUNT, AUTOMATED 177 10^3/uL (150-450); RED BLOOD COUNT 4.21 10^6/uL (4.00-5.40); WHITE BLOOD COUNT 4.3 10^3/uL (4.0-10.0)
[2019-07-06 18:32] LABS: ALBUMIN 3.5 GM/DL (3.2-5.2); ALT/SGPT 27 U/L (12-78); BILIRUBIN,TOTAL 0.5 MG/DL (0.2-1.0); BLOOD UREA NITROGEN 9 MG/DL (7-18); C REACTIVE PROTEIN QUANTITATIV 2.43 MG/DL (0.00-0.30); CALCIUM LEVEL 7.8 MG/DL (8.5-10.1); CARBON DIOXIDE LEVEL 26 MEQ/L (21-32); CHLORIDE LEVEL 107 MEQ/L (98-107); CREATININE FOR GFR 0.88 MG/DL (0.55-1.30); GLOMERULAR FILTRATION RATE > 60.0 (>51); GLUCOSE, FASTING 116 MG/DL (70-100); POTASSIUM SERUM 3.2 MEQ/L (3.5-5.1); SODIUM LEVEL 143 MEQ/L (136-145); TOTAL PROTEIN 7.1 GM/DL (6.4-8.2)
[2019-07-06 18:47] LABS: ERYTHROCYTE SEDIMENTATION RATE 41 mm/hr (0-30)
== END ==
LOC: M LAB 16:41
PROVIDERS: ATTEND Physician Assistant Medical
DX: R91.8 Other nonspecific abnormal finding of lung field (principal); J06.9 Acute upper respiratory infection, unspecified; R50.9 Fever, unspecified
CPT/HCPCS: 36415; 71046; 80053; 85025; 85652; 86140; 87486; 87581; 87633; 87798; 87804; G0463

== ENCOUNTER → 2019-07-10 | Outpatient (CLI) | payer MEDICARE, MEDICAID ==
--- NOTE | 2019-07-10 12:45 | REPPI ---
Clinical: Recent pneumonia . Comparison: 07/06/2019 . Technique: PA and lateral. Findings: The mediastinum and cardiac silhouette are normal. The lung adler again demonstrate coarsened interstitial markings which may reflect bronchitis. No focal consolidation, effusion, or pneumothorax. The skeletal structures are intact and normal. Impression: 1. Coarsened markings may reflect bronchitis versus chronic change. 2. No focal consolidation. Electronically Signed by Koko Romano MD 07/10/2019 12:38 P
== END ==
LOC: M PLAIMG 12:17
PROVIDERS: ATTEND Nurse Practitioner Family
DX: R91.8 Other nonspecific abnormal finding of lung field (principal); J11.00 Influenza due to unidentified influenza virus with unspecified type of pneumonia
CPT/HCPCS: 71046; G0463

== ENCOUNTER → 2019-08-25 | Outpatient (CLI) | payer MEDICARE, MEDICAID ==
[~2019-08-25] MED LIST changes: -MONT10TA2; -MONT10TA2 PO; +MONT10TA4; +MONT10TA4 PO
[2019-08-25 12:51] LABS: BASO % 0.9 % (0.0-1.0); EOS # 0.1 10^3/uL (0.0-0.5); EOS % 3.7 % (0.0-3.0); HEMATOCRIT 35.4 % (36.0-47.0); HEMOGLOBIN 11.5 g/dl (12.0-15.5); LYMPH # 0.7 10^3/uL (1.5-5.0); LYMPH % 21.2 % (24.0-44.0); MEAN CORPUSCULAR HEMOGLOBIN 30.3 pg (27.0-33.0); MEAN CORPUSCULAR HGB CONC 32.5 g/dl (32.0-36.5); MEAN CORPUSCULAR VOLUME 93.2 fl (80.0-96.0); MONO # 0.3 10^3/uL (0.0-0.8); NEUTROPHILS # 2.3 10^3/uL (1.5-8.5); NEUTROPHILS % 64.8 % (36.0-66.0); PLATELET COUNT, AUTOMATED 119 10^3/uL (150-450); WHITE BLOOD COUNT 3.5 10^3/uL (4.0-10.0)
[2019-08-25 13:24] LABS: ALBUMIN 3.3 GM/DL (3.2-5.2); ALT/SGPT 32 U/L (12-78); BILIRUBIN,TOTAL 0.5 MG/DL (0.2-1.0); BLOOD UREA NITROGEN 14 MG/DL (7-18); CALCIUM LEVEL 8.1 MG/DL (8.5-10.1); CARBON DIOXIDE LEVEL 27 MEQ/L (21-32); CHLORIDE LEVEL 103 MEQ/L (98-107); CHOLESTEROL LEVEL 234 MG/DL (<200); CREATININE FOR GFR 0.78 MG/DL (0.55-1.30); FREE T4 0.79 NG/DL (0.76-1.46); GLOMERULAR FILTRATION RATE > 60.0 (>51); GLUCOSE, FASTING 233 MG/DL (70-100); HDL CHOLESTEROL 36 MG/DL (>40); NON-HDL-C 198 MG/DL; POTASSIUM SERUM 3.7 MEQ/L (3.5-5.1); SODIUM LEVEL 139 MEQ/L (136-145); TOTAL PROTEIN 7.2 GM/DL (6.4-8.2); TRIGLYCERIDES LEVEL 782 MG/DL (<150)
[2019-08-25 14:25] LABS: HEMOGLOBIN A1c 8.4 %
[2019-08-25 14:46] LABS: MAU/CREAT RATIO 112.9 MCG/MG (0.0-30.0)
== END ==
LOC: M PLALAB 11:07
PROVIDERS: ATTEND Nurse Practitioner Family
DX: E11.9 Type 2 diabetes mellitus without complications (principal); E78.5 Hyperlipidemia, unspecified; I10 Essential (primary) hypertension

== ENCOUNTER → 2019-08-25 | Outpatient (REF) | payer MEDICARE, MEDICAID ==
[2019-08-25 18:36] LABS: APPEARANCE, URINE HAZY (CLEAR); BACTERIA, URINE AUTO 3+ (NEGATIVE); BILIRUBIN, URINE AUTO NEGATIVE (NEGATIVE); BLOOD, URINE BLOOD NEGATIVE (NEGATIVE); COLOR, URINE YELLOW (YELLOW); GLUCOSE, URINE (UA) AUTO 3+ mg/dL (NEGATIVE); KETONE, URINE AUTO TRACE mg/dL (NEGATIVE); LEUKOCYTE ESTERASE, URINE AUTO NEGATIVE (NEGATIVE); MUCUS, URINE SMALL (NEGATIVE); NITRITE, URINE AUTO POSITIVE (NEGATIVE); PROTEIN, URINE AUTO 2+ mg/dL (NEGATIVE); RBC, URINE AUTO 0 /HPF (0-3); SPECIFIC GRAVITY URINE AUTO 1.026 (1.002-1.035); SQUAMOUS EPITHELIAL CELL UR AU 2 /HPF (0-6); UROBILINOGEN, URINE AUTO 0.2 mg/dL (0.0-2.0); WBC, URINE AUTO 2 /HPF (0-3)
== END ==
LOC: M SMT 16:49
PROVIDERS: ATTEND Nurse Practitioner Family
DX: N32.81 Overactive bladder (principal); E11.9 Type 2 diabetes mellitus without complications; E78.5 Hyperlipidemia, unspecified; I10 Essential (primary) hypertension; Z79.899 Other long term (current) drug therapy
CPT/HCPCS: 36415; 51798; 80053; 80061; 81001; 82043; 83036; 84439; 84443; 85025; 87088; 87186; G0463

== ENCOUNTER → 2019-09-28 | Outpatient (CLI) | payer MEDICARE, MEDICAID ==
[2019-09-28 12:27] LABS: BLOOD UREA NITROGEN 9 MG/DL (7-18); CARBON DIOXIDE LEVEL 29 MEQ/L (21-32); CHLORIDE LEVEL 103 MEQ/L (98-107); CREATININE FOR GFR 0.74 MG/DL (0.55-1.30); GLOMERULAR FILTRATION RATE > 60.0 (>51); GLUCOSE, FASTING 132 MG/DL (70-100); SODIUM LEVEL 138 MEQ/L (136-145)
== END ==
LOC: M LAB 11:19
PROVIDERS: ATTEND Nurse Practitioner
DX: C90.00 Multiple myeloma not having achieved remission (principal)

== ENCOUNTER → 2019-11-03 | Outpatient (REF) | payer MEDICARE, MEDICAID ==
[2019-11-03 14:56] LABS: APPEARANCE, URINE CLOUDY (CLEAR); BACTERIA, URINE AUTO NEGATIVE (NEGATIVE); BILIRUBIN, URINE AUTO NEGATIVE (NEGATIVE); BLOOD, URINE BLOOD NEGATIVE (NEGATIVE); COLOR, URINE AMBER (YELLOW); GLUCOSE, URINE (UA) AUTO NEGATIVE (NEGATIVE); KETONE, URINE AUTO TRACE mg/dL (NEGATIVE); LEUKOCYTE ESTERASE, URINE AUTO NEGATIVE (NEGATIVE); MUCUS, URINE SMALL (NEGATIVE); NITRITE, URINE AUTO NEGATIVE (NEGATIVE); PROTEIN, URINE AUTO 2+ mg/dL (NEGATIVE); RBC, URINE AUTO 0 /HPF (0-3); SPECIFIC GRAVITY URINE AUTO 1.026 (1.002-1.035); SQUAMOUS EPITHELIAL CELL UR AU 3 /HPF (0-6); UROBILINOGEN, URINE AUTO 0.2 mg/dL (0.0-2.0); WBC, URINE AUTO 3 /HPF (0-3)
== END ==
LOC: M SMT 14:36
PROVIDERS: ATTEND Nurse Practitioner Family
DX: N32.81 Overactive bladder (principal)

== ENCOUNTER → 2019-12-02 | Outpatient (CLI) | payer MEDICARE, MEDICAID ==
[2019-12-02 15:52] LABS: BASO # 0.1 10^3/uL (0.0-0.2); BASO % 1.7 % (0.0-1.0); EOS # 0.2 10^3/uL (0.0-0.5); EOS % 3.9 % (0.0-3.0); LYMPH # 1.2 10^3/uL (1.5-5.0); LYMPH % 20.2 % (24.0-44.0); MEAN CORPUSCULAR HEMOGLOBIN 30.4 pg (27.0-33.0); MEAN CORPUSCULAR HGB CONC 31.6 g/dl (32.0-36.5); MEAN CORPUSCULAR VOLUME 96.2 fl (80.0-96.0); MONO # 0.6 10^3/uL (0.0-0.8); MONO % 10.5 % (0.0-5.0); NEUTROPHILS # 3.7 10^3/uL (1.5-8.5); NEUTROPHILS % 63.2 % (36.0-66.0); PLATELET COUNT, AUTOMATED 237 10^3/uL (150-450); RED BLOOD COUNT 3.95 10^6/uL (4.00-5.40); WHITE BLOOD COUNT 5.9 10^3/uL (4.0-10.0)
[2019-12-02 16:20] LABS: HEMOGLOBIN A1c 6.3 %
[2019-12-02 16:25] LABS: ALBUMIN 3.7 GM/DL (3.2-5.2); BILIRUBIN,TOTAL 0.5 MG/DL (0.2-1.0); CALCIUM LEVEL 8.3 MG/DL (8.5-10.1); CHOLESTEROL RISK RATIO 2.702 (<5); CREATININE FOR GFR 1.05 MG/DL (0.55-1.30); FREE T4 0.82 NG/DL (0.76-1.46); GLOMERULAR FILTRATION RATE 57.5 (>51); POTASSIUM SERUM 4.3 MEQ/L (3.5-5.1); THYROID STIMULATING HORMONE 3.56 uIU/ML (0.358-3.740); TOTAL PROTEIN 7.6 GM/DL (6.4-8.2)
== END ==
LOC: M LAB 14:57
PROVIDERS: ATTEND Physician Assistant
DX: C90.00 Multiple myeloma not having achieved remission (principal); I10 Essential (primary) hypertension; E11.9 Type 2 diabetes mellitus without complications; E78.5 Hyperlipidemia, unspecified; E05.90 Thyrotoxicosis, unspecified without thyrotoxic crisis or storm

== ENCOUNTER → 2020-07-18 | Outpatient (REF) | payer MEDICARE, MEDICAID ==
[~2020-07-18] MED LIST changes: -AMLO10TA5 PO; +AMLO1TAB25 PO; -MONT10TA4; -MONT10TA4 PO; +MONT5TAB2; +MONT5TAB2 PO; -PANT20TA2 PO; +PANT20TA6 PO
[2020-07-18 13:25] LABS: BLOOD UREA NITROGEN 15 MG/DL (7-18); CALCIUM LEVEL 8.4 MG/DL (8.5-10.1); CARBON DIOXIDE LEVEL 29 MEQ/L (21-32); CHLORIDE LEVEL 102 MEQ/L (98-107); CREATININE FOR GFR 0.95 MG/DL (0.55-1.30); GLOMERULAR FILTRATION RATE > 60.0 (>51); GLUCOSE, FASTING 95 MG/DL (70-100); POTASSIUM SERUM 3.9 MEQ/L (3.5-5.1); SODIUM LEVEL 141 MEQ/L (136-145)
[2020-07-18 13:42] LABS: MALB URINE SIEMENS 59.6 MG/L; MAU/CREAT RATIO 24.7 MCG/MG (0.0-30.0)
[2020-07-18 16:36] LABS: HEMOGLOBIN A1c 5.2 %
== END ==
LOC: M SFHCPLAZ 08:36
PROVIDERS: ATTEND Physician Assistant
DX: E11.9 Type 2 diabetes mellitus without complications (principal)
CPT/HCPCS: 36415; 80048; 80061; 82043; 83036; G0463

== ENCOUNTER → 2020-07-18 | Outpatient (CLI) | payer MEDICARE, MEDICAID ==
[2020-07-18 13:29] LABS: CHOLESTEROL RISK RATIO 2.129 (<5)
== END ==
LOC: M PLALAB 08:37
PROVIDERS: ATTEND Physician Assistant
DX: E78.2 Mixed hyperlipidemia (principal)

== ENCOUNTER → 2020-07-19 | Outpatient (CLI) | payer MEDICARE, MEDICAID ==
--- NOTE | 2020-07-19 15:23 | REPMRS ---
Patient History The patient states she has not had a clinical breast exam in over a year. Family history of endometrial cancer and ovarian cancer in maternal grandmother, prostate cancer in maternal grandfather. No Hormone Replacement Therapy 3D TOMOSYNTHESIS WAS PERFORMED. [facility]%. [place]para breast density a. Digital Woman Screen Mammo: July 19, 2020 - Exam #: [id number] Bilateral CC and MLO view(s) were taken. Technologist: Susan Kaminski, Technologist Prior study comparison: June 16, 2019, bilateral digital woman screen mammo performed at [facility]. October 16, 2017, digital woman screen mammo performed at [facility]. FINDINGS: There are scattered fibroglandular densities. There has been no change in the appearance of the mammogram from the prior studies. There is a mild amount of residual fibroglandular tissue which is fairly symmetric. There is no interval development of dominant mass, architectural distortion, or clustered microcalcification suggestive of malignancy. Assessment: BI-RADS/ACR category 1 mammogram. Negative Mammogram. Recommendation Routine screening mammogram in 1 year (for women over age 40). This mammogram was interpreted with the aid of an FDA-approved computer-aided dectection system. Electronically Signed By: Christofer Garza MD 07/19/20 [id number]
== END ==
LOC: M WHC 12:47
PROVIDERS: ATTEND Physician Assistant
DX: Z12.31 Encounter for screening mammogram for malignant neoplasm of breast (principal)

== ENCOUNTER → 2020-09-26 | Outpatient (CLI) | payer MEDICARE, MEDICAID ==
[~2020-09-26] MED LIST changes: +MONT10TA10; +MONT10TA10 PO; -MONT5TAB2; -MONT5TAB2 PO
== END ==
LOC: M LAB 12:55
DX: D46.9 Myelodysplastic syndrome, unspecified (principal)

== ENCOUNTER → 2020-09-26 | Outpatient (CLI) | payer MEDICARE, MEDICAID | LOC: M LABSMTC 12:03 | PROVIDERS: ATTEND Internal Medicine | DX: Z01.812 Encounter for preprocedural laboratory examination (principal); Z20.822 Contact with and (suspected) exposure to COVID-19; D46.9 Myelodysplastic syndrome, unspecified | CPT/HCPCS: 36415; 85027; 85610; U0003 ==

== ENCOUNTER → 2020-09-26 | Outpatient (CLI) | payer MEDICARE, MEDICAID ==
[2020-09-26 14:29] LABS: PLATELET COUNT, AUTOMATED 119 10^3/uL (150-450)
[2020-09-26 14:39] LABS: INR 1.02; PROTHROMBIN TIME 13.6 SECONDS (12.5-14.3)
== END ==
LOC: M LAB 12:48
DX: Z01.812 Encounter for preprocedural laboratory examination (principal); Z79.899 Other long term (current) drug therapy

== ENCOUNTER 2020-12-09 20:20 | Emergency (ER) | payer MEDICARE, MEDICAID ==
[~2020-12-09] VITALS: Ht 165.1 cm; Wt 86.4 kg
[~2020-12-09 20:20] MED LIST changes: +GABA-283 PO; -GABA-845 PO
--- NOTE | 2020-12-09 21:52 | REPVR ---
PROCEDURE INFORMATION: Exam: XR Left Foot Exam date and time: 12/09/2020 9:01 PM Age: 60 years old Clinical indication: Other: Pain and swelling after fall TECHNIQUE: Imaging protocol: XR Left foot. Views: 3 or more views. COMPARISON: No relevant prior studies available. FINDINGS: Bones/joints: Prior fixation of the great toe metatarsal with percutaneous pins. No apparent complication Normal hindfoot alignment. No evidence of tarsal coalition. No acute fracture or stress fracture. Lisfranc and midfoot alignment is normal. Joint spaces are well-maintained for age. Soft tissues: Dorsal forefoot soft tissue swelling is present. Well-defined plantar calcaneal spur, at the plantar aponeurosis insertion. IMPRESSION: Dorsal forefoot soft tissue swelling without evidence of an underlying acute osseous injury or hardware complication involving the great toe metatarsal Electronically signed by: Hilton Mayberry On 12/09/2020 21:52:34 PM
[2020-12-09 22:31] VITALS: BP 121/70
== END 2020-12-09 22:32 | disposition home or self-care (01) ==
LOC: M ED 20:20
DX: S90.32XA Contusion of left foot, initial encounter (principal); W01.0XXA Fall on same level from slipping, tripping and stumbling without subsequent striking against object, initial encounter; Y92.009 Unspecified place in unspecified non-institutional (private) residence as the place of occurrence of the external cause; Y93.9 Activity, unspecified; Y99.9 Unspecified external cause status; I10 Essential (primary) hypertension; E78.00 Pure hypercholesterolemia, unspecified; J45.909 Unspecified asthma, uncomplicated; K21.9 Gastro-esophageal reflux disease without esophagitis; Z87.442 Personal history of urinary calculi; Z87.440 Personal history of urinary (tract) infections; E11.40 Type 2 diabetes mellitus with diabetic neuropathy, unspecified; M54.9 Dorsalgia, unspecified; Z85.79 Personal history of other malignant neoplasms of lymphoid, hematopoietic and related tissues; F32.9 Major depressive disorder, single episode, unspecified; Z87.19 Personal history of other diseases of the digestive system; N32.81 Overactive bladder; Z79.84 Long term (current) use of oral hypoglycemic drugs; Z79.899 Other long term (current) drug therapy; Z88.1 Allergy status to other antibiotic agents

== ENCOUNTER → 2021-02-01 | Outpatient (REF) | payer MEDICARE, MEDICAID ==
[2021-02-01 16:04] LABS: BASO % 0.4 % (0.0-1.0); EOS # 0.1 10^3/uL (0.0-0.5); EOS % 1.3 % (0.0-3.0); HEMATOCRIT 28.9 % (36.0-47.0); HEMOGLOBIN 9.3 g/dl (12.0-15.5); LYMPH # 1.6 10^3/uL (1.5-5.0); LYMPH % 28.9 % (24.0-44.0); MEAN CORPUSCULAR HEMOGLOBIN 36.2 pg (27.0-33.0); MEAN CORPUSCULAR HGB CONC 32.2 g/dl (32.0-36.5); MEAN CORPUSCULAR VOLUME 112.5 fl (80.0-96.0); MONO # 0.5 10^3/uL (0.0-0.8); MONO % 9.5 % (2.0-8.0); NEUTROPHILS # 3.2 10^3/uL (1.5-8.5); NEUTROPHILS % 58.8 % (36.0-66.0); PLATELET COUNT, AUTOMATED 158 10^3/uL (150-450); RED BLOOD COUNT 2.57 10^6/uL (4.00-5.40); WHITE BLOOD COUNT 5.4 10^3/uL (4.0-10.0)
[2021-02-01 16:36] LABS: ALBUMIN 3.7 GM/DL (3.2-5.2); BILIRUBIN,TOTAL 0.3 MG/DL (0.2-1.0); CALCIUM LEVEL 8.7 MG/DL (8.5-10.1); CREATININE FOR GFR 1.38 MG/DL (0.55-1.30); GLOMERULAR FILTRATION RATE 41.8 (>51); MAGNESIUM LEVEL 1.8 MG/DL (1.8-2.4); POTASSIUM SERUM 4.1 MEQ/L (3.5-5.1); TOTAL PROTEIN 6.2 GM/DL (6.4-8.2)
== END ==
LOC: M LAB REF 15:45
PROVIDERS: ATTEND Nurse Practitioner Family
DX: Z94.81 Bone marrow transplant status (principal); C90.00 Multiple myeloma not having achieved remission; Z52.011 Autologous donor, stem cells

== ENCOUNTER → 2021-05-07 | Outpatient (CLI) | payer MEDICARE, MEDICAID ==
[~2021-05-07] MED LIST changes: -DOXY100C PO; +DOXY100C3 PO
[2021-05-07 14:04] LABS: BASO % 0.3 % (0.0-1.0); EOS # 0.1 10^3/uL (0.0-0.5); EOS % 0.9 % (0.0-3.0); HEMATOCRIT 27.1 % (36.0-47.0); HEMOGLOBIN 8.9 g/dl (12.0-15.5); LYMPH # 1.5 10^3/uL (1.5-5.0); LYMPH % 19.5 % (24.0-44.0); MEAN CORPUSCULAR HEMOGLOBIN 37.6 pg (27.0-33.0); MEAN CORPUSCULAR HGB CONC 32.8 g/dl (32.0-36.5); MONO # 0.5 10^3/uL (0.0-0.8); MONO % 6.3 % (2.0-8.0); NEUTROPHILS # 5.3 10^3/uL (1.5-8.5); NEUTROPHILS % 68.7 % (36.0-66.0); PLATELET COUNT, AUTOMATED 134 10^3/uL (150-450); RED BLOOD COUNT 2.37 10^6/uL (4.00-5.40); WHITE BLOOD COUNT 7.7 10^3/uL (4.0-10.0)
[2021-05-07 14:06] LABS: MEAN CORPUSCULAR VOLUME 114.3 fl (80.0-96.0)
[2021-05-07 14:35] LABS: ALBUMIN 3.4 GM/DL (3.2-5.2); BILIRUBIN,TOTAL 0.2 MG/DL (0.2-1.0); CALCIUM LEVEL 8.6 MG/DL (8.5-10.1); CREATININE FOR GFR 1.53 MG/DL (0.55-1.30); GLOMERULAR FILTRATION RATE 37.1 (>51); POTASSIUM SERUM 4.1 MEQ/L (3.5-5.1); TOTAL PROTEIN 6.3 GM/DL (6.4-8.2)
[2021-05-07 15:11] LABS: POLYCHROMASIA 1+; TEAR DROP CELLS 1+
[2021-05-07 15:13] LABS: OVALOCYTES 1+; SCHISTOCYTES 1+
[2021-05-07 15:22] LABS: PLATELET ESTIMATE DECREASED (NORMAL)
== END ==
LOC: M LAB 13:33
PROVIDERS: ATTEND Internal Medicine
DX: Z52.011 Autologous donor, stem cells (principal); C90.00 Multiple myeloma not having achieved remission; Z94.81 Bone marrow transplant status; C92.01 Acute myeloblastic leukemia, in remission; D46.9 Myelodysplastic syndrome, unspecified

== ENCOUNTER → 2021-12-28 | Outpatient (CLI) | payer MEDICARE, MEDICAID ==
[~2021-12-28] MED LIST changes: -FLUC150T; +FLUC150T9; -MONT10TA10; -MONT10TA10 PO; +MONT10TA97; +MONT10TA97 PO
[2021-12-28 13:34] LABS: HEMATOCRIT 32.4 % (36.0-47.0); HEMOGLOBIN 10.3 g/dl (12.0-15.5); MEAN CORPUSCULAR HEMOGLOBIN 35.5 pg (27.0-33.0); MEAN CORPUSCULAR HGB CONC 31.8 g/dl (32.0-36.5); MEAN CORPUSCULAR VOLUME 111.7 fl (80.0-96.0); PLATELET COUNT, AUTOMATED 232 10^3/uL (150-450); WHITE BLOOD COUNT 7.1 10^3/uL (4.0-10.0)
[2021-12-28 14:00] LABS: HEMOGLOBIN A1c 6.3 %
[2021-12-28 14:29] LABS: MALB URINE SIEMENS 28.2 MG/L
[2021-12-28 14:53] LABS: ALBUMIN 3.3 GM/DL (3.2-5.2); ALT/SGPT 25 U/L (12-78); BILIRUBIN,TOTAL 0.9 MG/DL (0.2-1.0); BLOOD UREA NITROGEN 20 MG/DL (7-18); C REACTIVE PROTEIN QUANTITATIV 0.46 MG/DL (0.00-0.30); CARBON DIOXIDE LEVEL 29 MEQ/L (21-32); CHLORIDE LEVEL 101 MEQ/L (98-107); CHOLESTEROL LEVEL 244 MG/DL (<200); CHOLESTEROL RISK RATIO 5.422 (<5); CREATININE FOR GFR 1.61 MG/DL (0.55-1.30); FERRITIN 227 NG/ML (8-252); FREE T4 0.65 NG/DL (0.76-1.46); GLOMERULAR FILTRATION RATE 34.9 (>51); GLUCOSE, FASTING 120 MG/DL (70-100); HDL CHOLESTEROL 45 MG/DL (>40); IRON (FE) 72 UG/DL (50-170); NON-HDL-C 199 MG/DL; PERCENT SATURATION 22.9 % (13.2-45.0); POTASSIUM SERUM 4.4 MEQ/L (3.5-5.1); SODIUM LEVEL 138 MEQ/L (136-145); TOTAL IRON BINDING CAPACITY 315 UG/DL (250-450); TOTAL PROTEIN 6.9 GM/DL (6.4-8.2); TRIGLYCERIDES LEVEL 704 MG/DL (<150)
[2021-12-28 15:08] LABS: TOTAL 25(OH) VITAMIN D 26.8 NG/ML (30.0-100.0)
[2021-12-28 15:55] LABS: VITAMIN B12 LEVEL 211 PG/ML (247-911)
== END ==
LOC: M PLALAB 09:56
PROVIDERS: ATTEND Internal Medicine Hematology
DX: E11.9 Type 2 diabetes mellitus without complications (principal); Z79.899 Other long term (current) drug therapy

== ENCOUNTER 2022-01-11 08:21 | Outpatient (RCR) | payer MEDICARE, MEDICAID | END 2022-02-04 | LOC: M PT 08:21 | PROVIDERS: ATTEND Internal Medicine Hematology | DX: Z74.09 Other reduced mobility (principal) ==